=== PATIENT | male | born 1950 | race American Indian/Alaskan Native ===

== ENCOUNTER 2017-10-17 10:24 | Outpatient (CLI) | payer MEDICARE ==
--- NOTE | 2017-10-17 11:04 | Cat Scan Report ---
CT CHEST WITHOUT CONTRAST: HISTORY: Lung cancer. COMPARISON: none. TECHNIQUE: Helical CT in 1.25mm intervals without IV contrast. Sagittal and coronal reformatted images. FINDINGS: Thyroid gland: Normal. Tracheobronchial tree: Normal. Esophagus: Normal. Heart: Normal. Pericardium: Normal. Mediastinum: An enlarged precarinal lymph node measures 2.9 x 1.5 cm. Right hilar adenopathy is suspected but poorly imaged but without IV contrast. Lung Lujan: Moderate centrilobular and paraseptal emphysematous changes are identified in the upper lung zones. A spiculated, cavitating mass is identified in the posterior right upper lobe measuring 6.2 x 6.4 x 5.7 cm. Pleural Spaces: Normal. Musculoskeletal: No suspicious bony lesions detected. IMPRESSION: Emphysema. Right upper lobe mass consistent with primary lung cancer as described. Enlarge lymph nodes in the precarinal chain and right hilar chain.
== END 2017-10-17 10:25 | disposition home or self-care (01) ==
LOC: CT 10:24
DX: Z12.2 Encounter for screening for malignant neoplasm of respiratory organs (principal); J43.9 Emphysema, unspecified; R59.9 Enlarged lymph nodes, unspecified
CPT/HCPCS: 71250